=== PATIENT | male | born 1955 | race Caucasian/White ===

== ENCOUNTER → 2019-09-08 13:33 | Outpatient (BNVA) | payer MEDICARE, MEDICAID, SELFPAY | PROVIDERS: Family Provider Internal Medicine; Visit Provider Social Worker | DX: F33.2 Major depressive disorder, recurrent severe without psychotic features (principal); F41.1 Generalized anxiety disorder; F43.12 Post-traumatic stress disorder, chronic; F10.20 Alcohol dependence, uncomplicated | CPT/HCPCS: 90834 ==

== ENCOUNTER → 2019-11-10 13:42 | Outpatient (BNVA) | payer MEDICARE, MEDICAID, SELFPAY | PROVIDERS: Family Provider Internal Medicine; Visit Provider Social Worker | DX: F41.1 Generalized anxiety disorder (principal) | CPT/HCPCS: 90834 ==

== ENCOUNTER → 2019-12-08 08:33 | Outpatient (BNVA) | payer MEDICARE, MEDICAID, SELFPAY | PROVIDERS: Family Provider Internal Medicine; Visit Provider Social Worker | DX: F33.2 Major depressive disorder, recurrent severe without psychotic features (principal); F41.1 Generalized anxiety disorder | CPT/HCPCS: 90834 ==

== ENCOUNTER → 2020-01-01 09:09 | Outpatient (BNVA) | payer MEDICARE, MEDICAID, SELFPAY | PROVIDERS: Family Provider Internal Medicine; Visit Provider Social Worker | DX: F41.1 Generalized anxiety disorder (principal); F32.2 Major depressive disorder, single episode, severe without psychotic features; F43.12 Post-traumatic stress disorder, chronic | CPT/HCPCS: 90832 ==

== ENCOUNTER → 2020-01-05 07:44 | Outpatient (BNVA) | payer MEDICARE, MEDICAID, SELFPAY | PROVIDERS: Family Provider Internal Medicine; Visit Provider Nurse Practitioner | DX: F33.2 Major depressive disorder, recurrent severe without psychotic features (principal); F41.1 Generalized anxiety disorder | CPT/HCPCS: 99213 ==

== ENCOUNTER 2020-11-01 12:18 | Outpatient (CLI) | payer MEDICARE, MEDICAID, SELFPAY ==
[2020-11-01 13:01] LABS: Basophils % 0.3 %; Eosinophils % 1.2 %; Hematocrit 27.4 % (42.0-52.0); Hemoglobin 9.3 g/dL (11.7-16.6); Lymphocytes # 0.5 10^3/uL (0.8-4.8); Lymphocytes % 16.2 %; Mean Corpuscular HGB Conc 33.9 g/dL (30.0-36.0); Mean Corpuscular Hemoglobin 34.2 pg (28.0-34.0); Mean Corpuscular Volume 100.7 fL (80-94); Mean Platelet Volume 10.4 fL (7.4-10.4); Monocytes # 0.2 10^3/uL (0.2-0.9); Monocytes % 6.6 %; Neutrophils # 2.51 10^3/uL (1.8-7.7); Neutrophils % 75.4 %; Nucleated Red Blood Cells % 0 %; Platelet Count 73 10^3/cmm (130-400); Red Blood Count 2.72 10^6/uL (4.1-5.3); Red Cell Distribution Width 12.2 % (12.1-15.1); White Blood Count 3.3 10^3/uL (4.0-10.0)
[2020-11-01 13:28] LABS: Urine Creatinine 70 mg/dL (39-259); Urine Protein Random 20 mg/dL
[2020-11-01 13:32] LABS: UPRO/UCREAT Ratio 0.29 mg/mg CR
[2020-11-01 13:43] LABS: 25 Hydroxy Vitamin D 5 ng/mL (30-100); Albumin Level 3.6 g/dL (3.5-5.2); Anion Gap 17.5 (5-19); Blood Urea Nitrogen 17 mg/dL (8-23); Calcium 8.2 mg/dL (8.5-10.5); Carbon Dioxide 19 mmol/L (22-29); Chloride 87 mmol/L (98-107); Glomerular Filtration Rate 40.4 mL/min (90-130); Glucose 71 mg/dL (65-115); Phosphorus 3.4 mg/dL (2.5-4.5); Potassium 3.5 mmol/L (3.5-5.1)
[2020-11-01 13:49] LABS: Sodium 122 mmol/L (136-145)
== END 2020-11-01 12:19 | disposition home or self-care (01) ==
LOC: LAB 12:31
PROVIDERS: PCP Internal Medicine; Visit Provider Nurse Practitioner
DX: N18.4 Chronic kidney disease, stage 4 (severe) (principal)
CPT/HCPCS: 36415; 80069; 82306; 82310; 82570; 83970; 84156; 85025

== ENCOUNTER 2021-03-05 11:47 | Emergency (ER) | payer MEDICARE, MEDICAID, SELFPAY ==
[2021-03-05 12:10] VITALS: BP 151/85; PULSE 89; RESP 14; TEMP 37.1; O2SAT 99; BMI 18.8
--- NOTE | 2021-03-05 12:16 | ED_ITS ---
HPI - Extremity Problem General: Chief complaint: Wound/Laceration Stated complaint: R. Wrist Injury/Swelling in R. Hand Time Seen by Provider: 03/05/21 12:09 Source: patient and family (caregiver) Mode of arrival: wheelchair Limitations: altered mental status (chronic dementia) History of Present Illness: HPI Narrative: Patient is a 65-year-old male who presents to ED today along with a caregiver for concerns of right hand/wrist injury and infection. Patient tells me he was in [place], [place] and was walking when he dropped his keys. He states he bent over to pick them up and accidentally fell injuring his right wrist/hand. He tells me this incident occurred several weeks ago however caregiver states this is an accurate and only occurred 1-2 days ago. Caregiver states he has a history of dementia and is not a very good historian. Patient is unaware of his last tetanus shot. He is not sure if he landed onto the wrist/hand but he knows he scraped it and since then has noticed pain redness, warmth, and swelling. No fevers. MD Complaint: extremity pain, extremity swelling, joint swelling and joint pain Onset (ago): day(s) Pain Consistency: constant Location: right and upper extremity Radiation: none Relieving factors: immobilization Exacerbating factors: range of motion Associated symptoms: Reports no associated symptoms; Deny chest pain or fever(s) Review of Systems Const: Denies: fever(s), chills, body aches, fatigue or malaise Card: Denies: chest pain Resp: Denies: dyspnea Musc: Reports: extremity pain (R hand), extremity swelling (R hand), joint pain, joint swelling (R wrist) and joint stiffness (R wrist) Neuro: Denies: numbness in extremities, weakness in extremities or sensory changes [facility] ED PFSH: Medical History (Updated 03/05/21 @ 14:28 by KENNY Denis) Generalized anxiety disorder Major depressive disorder, recurrent severe without psychotic features Physical Exam Const: COMMON NORMALS: no acute distress, patient oriented x3 and alert GENERAL APPEARANCE: cooperative and frail appearing ORIENTATION/CONSCIOUSNESS: Yes awake, Yes oriented to person and Yes oriented to place Neck/C-Spine: COMMON NORMALS: full ROM CERVICAL SPINE: No pain with cervical ROM and No Cervical spine tenderness Resp: COMMON NORMALS: normal respiratory effort Back/Pelvis: COMMON NORMALS: thoracic and lumbar spine normal to inspection, no thoracic nor lumbar tenderness and thoraco-lumbar ROM normal Extremity: RIGHT UPPER EXTREMITY: Yes wrist and Yes hand & digits OTHER: patient has two chronic appearing large hyperkeratotic/scabbed lesions to R dorsal forearm-these lesions have no surrounding redness or drainage and do not appear infected-of note he has a piece of string like material embedded into one of the lesions-he is unaware of how long it has been present he has a very minor skin tear to mid dorsal forearm that is non-repairable and does not appear infected he has two minor abrasions to dorsal R wrist that most likely was entrance of infection-there is erythema/warmth affecting R 5th finger and dorsum of hand/wrist-swelling noted throughout hand/wrist; there is no lymphangitic streaking; there is no cellulitis extending past his wrist; he maintains fairly good ROM of wrist and digits at this time Neuro: COMMON NORMALS: patient oriented x3, moves all extremities, no focal motor deficits and no sensory deficits noted SENSORIUM/ORIENTATION: Yes alert, Yes oriented to person and Yes oriented to place Skin: NARRATIVE SKIN EXAM: see extremity assessment for pertinent skin findings Course Vital Signs: Vital signs: Vital Signs Temperature 98.7 F 03/05/21 12:10 Pulse Rate 87 03/05/21 15:34 Respiratory Rate 18 03/05/21 15:34 Blood Pressure 145/75 03/05/21 15:34 Pulse Oximetry 100 03/05/21 15:34 MDM - Extremity (Nontraumatic) MDM Narrative: Medical decision making narrative: Patient has cellulitis to his R hand/wrist. He is not tachycardic, hypotensive, or febrile. He has a normal white count. He has chronic kidney disease managed by Dr. Hall. He is mildly hyponatremic. He was given a dose of IV vancomycin and will be sent home on Bactrim. Recommend close observation by PCP Dr. Tan-will have CM try and get him set up with an appointment early this week. Strict return to ED precautions given if infection worsens-he might warrant admission/IV antibiotics at that time. Patient verbalized understanding. Lab Data: Labs: Lab Results 03/05/21 03/05/21 Range/Units 12:53 12:53 WBC 6.6 (4.0-10.0) 10^3/ uL RBC 3.23 L (4.1-5.3) 10^6/u L Hgb 10.7 L (11.7-16.6) g/dL Hct 33.0 L (42.0-52.0) % MCV 102.2 H (80-94) fL MCH 33.1 (28.0-34.0) pg MCHC 32.4 (30.0-36.0) g/dL RDW 13.1 (12.1-15.1) % Plt Count 211 (130-400) 10^3/c mm MPV 9.5 (7.4-10.4) fL Neut % (Auto) 74.5 % Lymph % (Auto) 11.4 % Lyman % (Auto) 12.9 % Eos % (Auto) 0.6 % Baso % (Auto) 0.3 % Neut # (Auto) 4.90 (1.8-7.7) 10^3/u L Lymph # (Auto) 0.8 (0.8-4.8) 10^3/u L Lyman # (Auto) 0.9 (0.2-0.9) 10^3/u L Eos # (Auto) 0.0 (0.0-0.8) 10^3/u L Baso # (Auto) 0.0 (0.0-0.1) 10^3/u L Nucleated RBC % (a uto) 0 % Nucleated RBCs # 0.0 /100WBC Sodium 127 L (136-145) mmol/L Potassium 4.9 (3.5-5.1) mmol/L Chloride 97 L (98-107) mmol/L Carbon Dioxide 18 L (22-29) mmol/L Anion Gap 16.9 (5-19) BUN 24 H (8-23) mg/dL Creatinine 2.1 H (0.7-1.2) mg/dL GFR Calculation 31.7 L (90-130) mL/min Glucose 98 (65-115) mg/dL Calculated Osmolal ity 268 L (285-295) mOsm/k g Calcium 8.1 L (8.5-10.5) mg/dL Total Bilirubin 0.6 (0.15-1.2) mg/dL AST 13 (0-40) U/L ALT < 5 (0-41) U/L Alkaline Phosphata se 93 (40-130) IU/L C-Reactive Protein 53.0 H (0.0-4.9) mg/L Total Protein 7.0 (6.6-8.7) g/dL Albumin 3.7 (3.5-5.2) g/dL Globulin 3.3 (1.3-4.6) g/dL Imaging Data^: XR R wrist: Radiologist's impression: [id number] [place] [id number] ReportSigned Patient: Jose Alfredo Spencer MUnit #: [id number]: 1955cct#:[id number]/Sex: 65 / MADM Date: 03/05/21Loc: ERRoom/Bed:Attending Dr: Ordering Provider/Ordering MD: Bridgett Nelson Date of Service: 03/05/21 Procedure(s): XR wrist RT min 3V* [id number] Accession Number(s): [id number] Report Number: [id number] PROCEDURE INFORMATION: Exam: XR Right Wrist Exam date and time: 03/05/2021 12:15 PM Age: 65 years old Clinical indication: Injury or trauma; Fall; Blunt trauma (contusions or hematomas); Wrist; Right; Additional info: Injury/infection TECHNIQUE: Imaging protocol: XR Right wrist. Views: 3 or more views. COMPARISON: No relevant prior studies available. FINDINGS: Bones/joints: No acute fracture, subluxation, periosteal reaction or osseous erosion. Soft tissues: Dorsal soft tissue swelling. XR/XR wrist RT min 3V* [id number] IMPRESSION: No acute fracture, subluxation, periosteal reaction or osseous erosion. Dictated By:Evert De Jesus MDSigned By:Evert De Jesus MDSigned Date/Time:03/05/21 1308DD/ 1306 XR L hand: Radiologist's impression: [facility] [address] [place] [address] XRay Report Signed Patient: Jose Alfredo Spencer Unit #: [id number] : [id number] Age/Sex: 65 / M ADM Date: 03/05/21 Loc: ER Room/Bed: Attending Dr: Ordering Provider/Ordering MD: Bridgett Nelson Date of Service: 03/05/21 Procedure(s): XR hand RT min 3V* [id number] Accession Number(s): [id number] Report Number: [id number] PROCEDURE INFORMATION: Exam: XR Right Hand Exam date and time: 03/05/2021 12:15 PM Age: 65 years old Clinical indication: Injury or trauma; Fall; Blunt trauma (contusions or hematomas); Hand; Right; Additional info: Injury/infection swollen TECHNIQUE: Imaging protocol: XR Right hand. Views: 3 or more views. COMPARISON: No relevant prior studies available. FINDINGS: Bones/joints: No acute fracture, subluxation, periosteal reaction or osseous erosion. Soft tissues: No subcutaneous emphysema. Dorsal swelling. XR/XR hand RT min 3V* [id number] IMPRESSION: No acute fracture, subluxation, periosteal reaction or osseous erosion. Dictated By: Evert De Jesus MD Signed By: Evert De Jesus MD Signed Date/Time: 03/05/21 1310 DD/ 1309 Discharge Plan Discharge Patient Disposition: Home Clinical Impression: Cellulitis of hand, right, Cellulitis of right wrist, Hyponatremia Chronic kidney disease Qualifiers: Chronic kidney disease stage: unspecified stage Qualified Code(s): N18.9 - Chronic kidney disease, unspecified Condition: Stable Prescriptions: New Bactrim DS 800-160 mg tablet 1 tab PO BID 7 Days Qty: 14 RF: 0 No Action amlodipine 10 mg tablet 10 mg PO DAILY RF: 0 sertraline [Zoloft] 100 mg tablet 150 mg PO DAILY Qty: 45 RF: 1 atorvastatin 10 mg tablet 10 mg PO DAILY RF: 0 Remeron 15 mg tablet 7.5 mg PO BEDTIME RF: 0 Discharge Orders: Discharge ED (Routine); Ordered 03/05/21 Ordered By: Bridgett Nelson Referrals: Babatunde Tan DO [Primary Care Provider] - Patient Instructions: Cellulitis (ED) Activity Restrictions/Additional Instructions: As we discussed you need to try to see your primary care provider early this week for re-evaluation. Case management should help you set up this appointment. You need to fill antibiotics and start them immediately. Elevate the extremity as much as possible to help with swelling. You need to return to the emergency department in 24 to 48 hours if hand/wrist continues to worsen-you most likely will require admission and IV antibiotics at that point. Coding Level of Care Code ED Ammunition Officer for Laurie Whitt Exam Detailed
[2021-03-05 13:17] LABS: Basophils % 0.3 %; Eosinophils % 0.6 %; Hemoglobin 10.7 g/dL (11.7-16.6); Lymphocytes # 0.8 10^3/uL (0.8-4.8); Lymphocytes % 11.4 %; Mean Corpuscular HGB Conc 32.4 g/dL (30.0-36.0); Mean Corpuscular Hemoglobin 33.1 pg (28.0-34.0); Mean Corpuscular Volume 102.2 fL (80-94); Mean Platelet Volume 9.5 fL (7.4-10.4); Monocytes # 0.9 10^3/uL (0.2-0.9); Monocytes % 12.9 %; Neutrophils % 74.5 %; Nucleated Red Blood Cells % 0 %; Platelet Count 211 10^3/cmm (130-400); Red Blood Count 3.23 10^6/uL (4.1-5.3); Red Cell Distribution Width 13.1 % (12.1-15.1); White Blood Count 6.6 10^3/uL (4.0-10.0)
[2021-03-05] MEDS: vancomycin 1,000 MG in sodium chloride 0.9% 250 ML 250 MG IV (13:34)
[2021-03-05] MEDS: tetanus-diphtheria tox (adult) 0.5 mL SDV IM (13:35)
[2021-03-05 13:39] VITALS: BP 147/87; PULSE 86; RESP 18; O2SAT 100
[2021-03-05 13:58] LABS: Alanine Aminotransferase < 5 U/L (0-41); Albumin Level 3.7 g/dL (3.5-5.2); Alkaline Phosphatase 93 IU/L (40-130); Anion Gap 16.9 (5-19); Aspartate Amino Transferase 13 U/L (0-40); Blood Urea Nitrogen 24 mg/dL (8-23); Calcium 8.1 mg/dL (8.5-10.5); Carbon Dioxide 18 mmol/L (22-29); Chloride 97 mmol/L (98-107); Globulin 3.3 g/dL (1.3-4.6); Glomerular Filtration Rate 31.7 mL/min (90-130); Glucose 98 mg/dL (65-115); Osmolality Calculated 268 mOsm/kg (285-295); Potassium 4.9 mmol/L (3.5-5.1); Sodium 127 mmol/L (136-145); Total Bilirubin 0.6 mg/dL (0.15-1.2)
[2021-03-05 15:28] VITALS: BP 145/75; PULSE 87; RESP 18; O2SAT 100
--- NOTE | 2021-03-05 15:30 | PC.NURSE ---
DC to home, DC instructions and prescription given to patient, voiced full understanding,zero questions. IV DC'd cath intact, bleeding controlled with 2X2 and coban. Patient ambulatory to ER entrance to POV with zero difficulties.
[2021-03-05 15:34] VITALS: BP 145/75; PULSE 87; RESP 18; O2SAT 100
--- NOTE | 2021-03-08 08:50 | DCPLANNER ---
late entry - On 03.07.21 - telecom network manager had message to schedule a follow up appointment for patient with primary care physician, Dr. Tan. telecom network manager called [facility], a follow up appointment was scheduled for patient for Monday, March 08, 2021 at 2:[address] Levine. telecom network manager called patient at phone number [phone], unable to speak with patient at this time a voicemail was left for patient to return caser phone call. telecom network manager called patient 3 times to give him the appointment information, but was unable to speak with patient at this time. 03.08.21 - caser called patient at the above phone number to try and speak with patient to give him the appointment information. telecom network manager was unable to speak with patient to give him the appointment information. telecom network manager called [facility] and cancelled the appointment.
== END 2021-03-05 15:30 | disposition home or self-care (01) ==
PROVIDERS: Emergency Provider Physician Assistant; PCP Internal Medicine
DX: L03.113 Cellulitis of right upper limb (principal); E87.1 Hypo-osmolality and hyponatremia; N18.9 Chronic kidney disease, unspecified; Z23 Encounter for immunization
CPT/HCPCS: 73110; 73130; 80053; 85025; 86140; 87040; 90471; 90714; 96365; 99284; J3370; J7050